=== PATIENT | male | born 1995 | race Caucasian/White ===

== ENCOUNTER 2023-03-03 14:27 | Inpatient (IN) ==
[2023-03-03 15:02] LABS: ABS Basophils 0.1 10^3/uL (0.0-0.1); ABS Eosinophils 0.4 10^3/uL (0.0-0.5); ABS Lymphocytes 2.6 10^3/uL (1.0-4.8); ABS Monocytes 1.1 10^3/uL (0.0-1.1); Eosinophil % 3.5 %; Hematocrit 43.1 % (38-53); Hemoglobin 14.6 g/dL (13.2-16.3); Lymphocyte % 23.1 %; Mean Corpuscular Hemoglobin 29.9 pg (27-33); Mean Corpuscular Hgb Conc 33.9 g/dL (31-36); Mean Corpuscular Volume 88.3 fL (80-97); Platelet Count 309 10^3/uL (150-450); Red Blood Count 4.89 10^6/uL (4.06-5.63); Red Cell Distribution Width 13.5 % (12-17); White Blood Count 11.2 10^3/uL (3.6-10.2)
[2023-03-03] MEDS ORDERED: Nicotine PATCH 14 MG/24 HR PATCH TRANSDERM ONE (15:26)
[2023-03-03 15:28] LABS: ALT 291 U/L (7-52); AST 109 U/L (13-39); Albumin 4.6 g/dL (3.2-5.2); Albumin/Globulin Ratio 1.5 (1-3); Alkaline Phosphatase 79 U/L (35-149); Anion Gap 10 mmol/L (2-16); Blood Urea Nitrogen 11 mg/dL (6-24); CO2 Carbon Dioxide 20 mmol/L (22-32); Calcium 9.8 mg/dL (8.6-10.3); Chloride 106 mmol/L (101-111); Glucose 82 mg/dL (70-100); Sodium 136 mmol/L (135-145); Total Protein 7.6 g/dL (6.4-8.9); eGFR CKD-EPI 127.9 (>60)
[2023-03-03 15:47] LABS: Alcohol, S 50 mg/dL (<13); Salicylate < 2.50 mg/dL (<30)
[2023-03-03 15:53] LABS: Acetaminophen < 15 mcg/mL
[2023-03-03 15:58] LABS: TSH Ultra Thyroid Stim Horm 2.02 mcIU/mL (0.34-5.60)
[2023-03-03] MEDS ORDERED: Al Hydrox/Mg Hydrox/Simet LIQ 30 ML UDC PO PRN (18:47)
[2023-03-03 23:05] LABS: Hepatitis B Surface Antigen Nonreactive (Nonreactive)
[2023-03-03 23:10] LABS: Hepatitis A Ab IgM Negative (Negative)
[2023-03-03 23:11] LABS: Hepatitis B Core IgM Nonreactive (Nonreactive)
[2023-03-03 23:53] LABS: Hepatitis C Antibody Reactive (Negative)
[2023-03-04] MEDS: Vitamin THERAPEUTIC TAB PO SCH (10:23)
[2023-03-04] MEDS: Nicotine PATCH 21 MG/24 HR PATCH TRANSDERM SCH ×2 (10:23→11:26)
[2023-03-04] MEDS: Nicotine GUM 2MG FRUIT FLAVOR PO PRN (18:35)
[2023-03-05] MEDS: Vitamin THERAPEUTIC TAB PO SCH (08:56)
[2023-03-05] MEDS: Nicotine PATCH 21 MG/24 HR PATCH TRANSDERM SCH (08:56)
[2023-03-05] MEDS: Nicotine GUM 2MG FRUIT FLAVOR PO PRN ×2 (15:22→19:18)
[2023-03-06] MEDS: Vitamin THERAPEUTIC TAB PO SCH (08:16)
[2023-03-06] MEDS: Nicotine PATCH 21 MG/24 HR PATCH TRANSDERM SCH (08:17)
[2023-03-06] MEDS: Nicotine GUM 2MG FRUIT FLAVOR PO PRN ×4 (08:44→18:17)
[2023-03-07] MEDS: Vitamin THERAPEUTIC TAB PO SCH (07:58)
[2023-03-07] MEDS: Nicotine PATCH 21 MG/24 HR PATCH TRANSDERM SCH (07:58)
[2023-03-07] MEDS: Nicotine GUM 2MG FRUIT FLAVOR PO PRN ×5 (08:26→21:19)
[2023-03-08] MEDS: Nicotine PATCH 21 MG/24 HR PATCH TRANSDERM SCH (07:43)
[2023-03-08] MEDS: Vitamin THERAPEUTIC TAB PO SCH (07:44)
[2023-03-08 08:12] LABS: ALT 350 U/L (7-52); AST 126 U/L (13-39); Albumin 4.1 g/dL (3.2-5.2); Albumin/Globulin Ratio 1.5 (1-3); Alkaline Phosphatase 80 U/L (35-149); Cholesterol 178 mg/dL; Globulin 2.8 g/dL (2-4); HDL Cholesterol 37.7 mg/dL; LDL Cholesterol 93 mg/dL; Total Protein 6.9 g/dL (6.4-8.9); Triglycerides 235 mg/dL
[2023-03-08] MEDS: Nicotine GUM 2MG FRUIT FLAVOR PO PRN ×3 (08:54→17:47)
[2023-03-09] MEDS: Nicotine PATCH 21 MG/24 HR PATCH TRANSDERM SCH (08:27)
[2023-03-09] MEDS: Nicotine GUM 2MG FRUIT FLAVOR PO PRN ×3 (08:27→18:52)
[2023-03-09] MEDS: Vitamin THERAPEUTIC TAB PO SCH (08:31)
[2023-03-09] MEDS ORDERED: ARIPiprazole LAUROXIL 441 MG/1.6 ML SYRINGE IM ONE (09:47)
[2023-03-09] MEDS ORDERED: ARIPiprazole LAUROXIL INITIO 675 MG/2.4 ML SYRINGE IM ONE (10:00)
[2023-03-09 14:42] LABS: Hepatitis B Surface Ab Not Immune (Immune)
[2023-03-10 08:07] VITALS: BP 128/82
[2023-03-10] MEDS: Nicotine GUM 2MG FRUIT FLAVOR PO PRN (09:23)
[2023-03-10] MEDS: Vitamin THERAPEUTIC TAB PO SCH (09:30)
[2023-03-10] MEDS: Nicotine PATCH 21 MG/24 HR PATCH TRANSDERM SCH (09:31)
[2023-03-10 12:47] LABS: Albumin 4.2 g/dL (3.2-5.2); Calcium 9.4 mg/dL (8.6-10.3); Potassium 4.6 mmol/L (3.5-5.0); Total Bilirubin 0.3 mg/dL (0.2-1.0)
[2023-03-10 12:53] LABS: Albumin/Globulin Ratio 1.6 (1-3); Creatinine, Serum 0.7 mg/dL (0.67-1.17); Globulin 2.7 g/dL (2-4); Total Protein 6.9 g/dL (6.4-8.9); eGFR CKD-EPI 127.9 (>60)
[2023-03-11 23:44] LABS: Hepatitis C Genotype 1a (Undetected)
[2023-03-14 11:38] LABS: ActiTest Interpretation severe activity; Alanine Aminotransferase (ALT) 428 U/L (7-55); Alpha-2-Macroglobulin, S 188 mg/dL (100 - 280); Apolipoprotein A1, S 129 mg/dL (>=120); Bilirubin, Total, S <0.2 mg/dL (<=1.2); BioPredictive Serial Number 4415624; FibroTest Interpretation no fibrosis; Gamma Glutamyltransferase GGT 19 U/L (8 - 61); Haptoglobin, S 132 mg/dL (30 - 200)
== END 2023-03-10 12:32 | disposition home or self-care (01) | DRG 750 ==
LOC: ED 14:27 → BSU 18:56
PROVIDERS: ADMIT Psychiatry & Neurology Psychiatry; ATTEND Psychiatry & Neurology Psychiatry

== ENCOUNTER 2023-10-03 18:22 | Inpatient (IN) ==
[2023-10-03 20:20] LABS: ABS Basophils 0.1 10^3/uL (0.0-0.1); ABS Eosinophils 0.3 10^3/uL (0.0-0.5); ABS Lymphocytes 2.7 10^3/uL (1.0-4.8); ABS Monocytes 0.7 10^3/uL (0.0-1.1); ABS Neutrophils 4.8 10^3/uL (1.5-7.6); Eosinophil % 3.5 %; Hematocrit 40.1 % (38-53); Hemoglobin 13.6 g/dL (13.2-16.3); Lymphocyte % 31.9 %; Mean Corpuscular Hemoglobin 29.3 pg (27-33); Mean Corpuscular Volume 86.2 fL (80-97); Mean Platelet Volume 7.5 fL (7.5-11.2); Platelet Count 386 10^3/uL (150-450); Red Blood Count 4.65 10^6/uL (4.06-5.63); Red Cell Distribution Width 13.8 % (12-17); White Blood Count 8.6 10^3/uL (3.6-10.2)
[2023-10-03] MEDS ORDERED: Al Hydrox/Mg Hydrox/Simet LIQ 30 ML UDC PO PRN (20:33)
[2023-10-03] MEDS ORDERED: Nicotine GUM 4MG FRUIT FLAVOR PO PRN (20:33)
[2023-10-03 20:37] LABS: ALT 161 U/L (7-52); AST 55 U/L (13-39); Albumin/Globulin Ratio 1.3 (1-3); Alkaline Phosphatase 83 U/L (35-149); Anion Gap 9 mmol/L (2-16); Blood Urea Nitrogen 16 mg/dL (6-24); CO2 Carbon Dioxide 32 mmol/L (22-32); Calcium 9.7 mg/dL (8.6-10.3); Chloride 101 mmol/L (101-111); Creatinine, Serum 0.88 mg/dL (0.67-1.17); Globulin 3.1 g/dL (2-4); Glucose 108 mg/dL (70-100); Potassium 3.5 mmol/L (3.5-5.0); Sodium 142 mmol/L (135-145); Total Bilirubin 0.4 mg/dL (0.2-1.0); Total Protein 7.1 g/dL (6.4-8.9); eGFR CKD-EPI 118.6 (>60)
[2023-10-03 20:59] LABS: Acetaminophen < 15 mcg/mL; Alcohol, S < 13 mg/dL (<13); Salicylate < 2.50 mg/dL (<30)
[2023-10-03 21:14] LABS: TSH Ultra Thyroid Stim Horm 1.68 mcIU/mL (0.34-5.60)
[2023-10-04] MEDS ORDERED: Nicotine PATCH 21 MG/24 HR PATCH ONE (08:28)
[2023-10-04] MEDS: Vitamin THERAPEUTIC TAB PO SCH (08:29)
[2023-10-04] MEDS: Nicotine PATCH 21 MG/24 HR PATCH TRANSDERM SCH (08:30)
[2023-10-04] MEDS ORDERED: OLANZapine 5 mg TAB *ODT PO SCH (21:00)
[2023-10-05] MEDS: Vitamin THERAPEUTIC TAB PO SCH (08:58)
[2023-10-05] MEDS: Nicotine PATCH 21 MG/24 HR PATCH TRANSDERM SCH (08:58)
[2023-10-05] MEDS ORDERED: OLANZapine 5 mg TAB *ODT PO PRN (12:04)
[2023-10-06] MEDS: Nicotine PATCH 21 MG/24 HR PATCH TRANSDERM SCH (08:19)
[2023-10-06] MEDS: Vitamin THERAPEUTIC TAB PO SCH (08:20)
[2023-10-06 08:34] LABS: HDL Cholesterol 26.3 mg/dL
[2023-10-06 09:55] LABS: Hepatitis B Surface Antigen Nonreactive (Nonreactive)
[2023-10-06 10:00] LABS: Hepatitis A Ab IgM Negative (Negative); Hepatitis B Core IgM Nonreactive (Nonreactive)
[2023-10-06 10:04] LABS: HIV 4th Generation Nonreactive (Nonreactive)
[2023-10-06 10:53] VITALS: BP 135/69
[2023-10-06 11:16] LABS: Hepatitis C Antibody Reactive (Negative)
== END 2023-10-06 13:30 | disposition home or self-care (01) | DRG 773 ==
LOC: ED 18:22 → EDHOLD 20:33 → BSU 22:02
PROVIDERS: ADMIT Psychiatry & Neurology Psychiatry; ATTEND Psychiatry & Neurology Psychiatry